=== PATIENT | female | born 1995 | race Caucasian/White ===

== ENCOUNTER 2017-12-10 13:30 | Emergency (ER) | payer BC ==
--- NOTE | 2017-12-10 14:29 | EDM.PDOC ---
ED HPI GENERAL MEDICAL PROBLEM - General Chief Complaint: Abdominal Pain Stated Complaint: CHEST PAINS Time Seen by Provider: 12/10/17 13:46 Source of Information: Reports: Patient History Limitations: Reports: No Limitations - History of Present Illness INITIAL COMMENTS - FREE TEXT/NARRATIVE: Veronika presents today with complaints of continued and worsening abdominal pain for the past 7 to 14 days. She reports pain throughout the day, worse after eating to the epigastric area with radiation like a band along her bra line around her chest. She complains of increase flatus, constipation, nausea and turning type pain. Veronika also complains of sore throat and frequent exposure to strep at work. She denies fever, chills, vomiting or other concerns. - Related Data Allergies Allergy/AdvReac Type Severity Reaction Status Date / Time amoxicillin Allergy Other Verified 12/10/17 14:01 cat dander Allergy Other Verified 12/10/17 14:01 cephalexin [From Keflex] Allergy Other Verified 12/10/17 14:01 Home Meds: Home Meds Citalopram Hydrobromide [Celexa] 1 tab PO ASDIRECTED 12/10/17 [History] Past Medical History Genitourinary History: Reports: Other (See Below) Other Genitourinary History: UTI last one was about 6 months ago : 0 Para: 0 LMP (Approximate): Other (See Below) (Patient has paragard in place since 2015.) Psychiatric History: Reports: Anxiety, Depression, OCD - Infectious Disease History Infectious Disease History: Reports: Herpes - Past Surgical History Female Surgical History: Reports: Other (See Below) Other Female Surgeries/Procedures: genital herpes Social & Family History - Family History Family Medical History: Noncontributory - Tobacco Use Smoking Status *Q: Former Smoker Used Tobacco, but Quit: Yes Month/Year Tobacco Last Used: 2015 - Caffeine Use Caffeine Use: Reports: Coffee (1 cup coffee per day), Tea - Alcohol Use Days Per Week of Alcohol Use: 2 Number of Drinks Per Day: 4 Total Drinks Per Week: 8 - Recreational Drug Use Recreational Drug Use: No ED ROS GENERAL - Review of Systems Review Of Systems: See Below Constitutional: Denies: Fever, Chills HEENT: Reports: Throat Pain. Denies: Ear Pain, Throat Swelling Respiratory: Reports: No Symptoms Cardiovascular: Reports: No Symptoms Endocrine: Reports: No Symptoms GI/Abdominal: Reports: Abdominal Pain, Constipation, Distension, Flatus, Nausea , Other (epigastric pain). Denies: Black Stool, Bloody Stool, Diarrhea, Decreased Appetite, Difficulty Swallowing, Stool Incontinence, Vomiting : Reports: No Symptoms Musculoskeletal: Reports: No Symptoms Skin: Reports: No Symptoms Neurological: Reports: No Symptoms Psychiatric: Reports: No Symptoms Hematologic/Lymphatic: Reports: No Symptoms Immunologic: Reports: No Symptoms ED EXAM, GI/ABD - Physical Exam Exam: See Below Text/Narrative:: Veronika is an alert and oriented 22 year old female presenting with complaints of epigastric/abdominal pain with radiation like a band around her chest along the bra line for two weeks. She reports eating a high fat diet this summer with low carbohydrate content. She states the past several weeks she has eaten more carbohydrates. Exam Limited By: No Limitations General Appearance: Alert, WD/WN, No Apparent Distress Eyes: Bilateral: EOMI Ears: Normal External Exam, Normal Canal, Hearing Grossly Normal, Normal TMs Nose: Normal Inspection, Normal Mucosa, No Blood Throat/Mouth: Normal Lips, Normal Teeth, Normal Gums, Normal Oropharynx, Normal Voice, No Airway Compromise, Other (erythema without exudate to tonsils) Head: Atraumatic, Normocephalic Neck: Normal Inspection, Supple, Non-Tender, Full Range of Motion. No: Lymphadenopathy (R), Lymphadenopathy (L) Respiratory/Chest: No Respiratory Distress, Lungs Clear, Normal Breath Sounds, No Accessory Muscle Use, Chest Non-Tender Cardiovascular: Normal Peripheral Pulses, Regular Rate, Rhythm, No Edema, No Gallop, No Murmur, No Rub GI/Abdominal Exam: Normal Bowel Sounds, Soft, Non-Tender, No Organomegaly, No Mass, Other (slight distention). No: Guarding, Rigid, Rebound, Hernia Extremities: Normal Inspection, Normal Range of Motion, No Pedal Edema, Normal Capillary Refill, Other (Tenderness to left flank with palpation/percussion) Neurological: Alert, Oriented, CN II-XII Intact, Normal Cognition, Normal Gait, No Motor/Sensory Deficits Psychiatric: Normal Affect, Normal Mood Skin Exam: Warm, Dry, Intact, Normal Color, No Rash Lymphatic: No Adenopathy Course - Vital Signs Last Recorded V/S: Last Vital Signs Temp 36.1 C 12/10/17 15:32 Pulse 78 12/10/17 16:28 Resp 14 12/10/17 15:32 BP 125/78 12/10/17 16:28 Pulse Ox 99 12/10/17 13:48 - Orders/Labs/Meds Orders: Active Orders 24 hr Category Date Time Status Gallbladder [Abdomen Ltd] [US] Stat Exams 12/10/17 15:21 Taken CULTURE STREP A CONFIRMATION [RM] Stat Lab 12/10/17 14:28 Results STREP SCRN A RAPID W CULT CONF [RM] Stat Lab 12/10/17 14:28 Results Labs: Laboratory Tests 12/10/17 12/10/17 12/10/17 Range/Units 14:50 14:50 14:50 WBC 9.5 (4.5-11.0) K/uL RBC 4.92 (3.30-5.50) M/uL Hgb 15.1 H (12.0-15.0) g/dL Hct 43.6 (36.0-48.0) % MCV 89 (80-98) fL MCH 31 (27-31) pg MCHC 35 (32-36) % Plt Count 254 (150-400) K/uL Neut % (Auto) 69 H (36-66) % Lymph % (Auto) 21 L (24-44) % Bland % (Auto) 6 (2-6) % Eos % (Auto) 4 (2-4) % Baso % (Auto) 0 (0-1) % Sodium 139 L (140-148) mmol/L Potassium 3.9 (3.6-5.2) mmol/L Chloride 102 (100-108) mmol/L Carbon Dioxide 25 (21-32) mmol/L Anion Gap 15.9 H (5.0-14.0) mmol/L BUN 5 L (7-18) mg/dL Creatinine 0.7 (0.6-1.0) mg/dL Est Cr Clr Drug Dosing 95.66 mL/min Estimated GFR (MDRD) > 60 (>60) Glucose 83 (74-106) mg/dL Calcium 9.2 (8.5-10.1) mg/dL Total Bilirubin 0.4 (0.2-1.0) mg/dL AST 23 (15-37) U/L ALT 21 (12-78) U/L Alkaline Phosphatase 76 (46-116) U/L C-Reactive Protein 0.11 (0.0-0.3) mg/dL Total Protein 8.5 H (6.4-8.2) g/dL Albumin 4.7 (3.4-5.0) g/dL Globulin 3.8 H (2.3-3.5) g/dL Albumin/Globulin Ratio 1.2 (1.2-2.2) Amylase 69 (25-115) U/L Lipase 121 (73-393) U/L Urine Color Urine Appearance Urine pH (4.5-8.0) Ur Specific [place] (1.008-1.030) Urine Protein (NEGATIVE) mg/dL Urine Glucose (UA) (NEGATIVE) mg/dL Urine Ketones (NEGATIVE) mg/dL Urine Occult Blood (NEGATIVE) Urine Nitrite (NEGATIVE) Urine Bilirubin (NEGATIVE) Urine Urobilinogen (NORMAL) mg/dL Ur Leukocyte Esterase (NEGATIVE) Urine RBC (0-5) Urine WBC (0-5) Ur Epithelial Cells Amorphous Sediment Urine Bacteria Urine Mucus Urine HCG, Qual 12/10/17 12/10/17 Range/Units 15:36 15:57 WBC (4.5-11.0) K/uL RBC (3.30-5.50) M/uL Hgb (12.0-15.0) g/dL Hct (36.0-48.0) % MCV (80-98) fL MCH (27-31) pg MCHC (32-36) % Plt Count (150-400) K/uL Neut % (Auto) (36-66) % Lymph % (Auto) (24-44) % Bland % (Auto) (2-6) % Eos % (Auto) (2-4) % Baso % (Auto) (0-1) % Sodium (140-148) mmol/L Potassium (3.6-5.2) mmol/L Chloride (100-108) mmol/L Carbon Dioxide (21-32) mmol/L Anion Gap (5.0-14.0) mmol/L BUN (7-18) mg/dL Creatinine (0.6-1.0) mg/dL Est Cr Clr Drug Dosing mL/min Estimated GFR (MDRD) (>60) Glucose (74-106) mg/dL Calcium (8.5-10.1) mg/dL Total Bilirubin (0.2-1.0) mg/dL AST (15-37) U/L ALT (12-78) U/L Alkaline Phosphatase (46-116) U/L C-Reactive Protein (0.0-0.3) mg/dL Total Protein (6.4-8.2) g/dL Albumin (3.4-5.0) g/dL Globulin (2.3-3.5) g/dL Albumin/Globulin Ratio (1.2-2.2) Amylase (25-115) U/L Lipase (73-393) U/L Urine Color Yellow Urine Appearance Cloudy Urine pH 8.0 (4.5-8.0) Ur Specific [place] 1.010 (1.008-1.030) Urine Protein Negative (NEGATIVE) mg/dL Urine Glucose (UA) Normal (NEGATIVE) mg/dL Urine Ketones Negative (NEGATIVE) mg/dL Urine Occult Blood Negative (NEGATIVE) Urine Nitrite Negative (NEGATIVE) Urine Bilirubin Negative (NEGATIVE) Urine Urobilinogen Normal (NORMAL) mg/dL Ur Leukocyte Esterase Negative (NEGATIVE) Urine RBC 0-5 (0-5) Urine WBC 0-5 (0-5) Ur Epithelial Cells Few Amorphous Sediment Not seen Urine Bacteria Moderate Urine Mucus Not seen Urine HCG, Qual Negative Strep screen negative. Patient lab work reviewed. Bedside US-Fast exam per Dr. Jacome, noted artifact over gallbladder. We will complete Gallbladder US. Ultrasound did not show any acute gallbladder disease. Radiologist report pending. Patient education provided on hydration, diet and follow up. She verbalizes understanding and is in agreement with plan. Departure - Departure Time of Disposition: 16:21 Disposition: Home, Self-Care 01 Condition: Good Clinical Impression: Abdominal pain, Gastritis - Discharge Information *PRESCRIPTION DRUG MONITORING PROGRAM REVIEWED*: No *COPY OF PRESCRIPTION DRUG MONITORING REPORT IN PATIENT KRYSTYNA: No Instructions: Gastritis, Adult, [id number], Abdominal Pain, Adult, Easy-to- Read Referrals: Lynette Rios, [facility] [Primary Care Provider] - Forms: ED Department Discharge, ED Return to Work/School Form Additional Instructions: You have been evaluated and treated for epigastric/abdominal pain and sore throat. Strep screen negative. Gallbladder ultrasound completed, no gallbladder issues. Radiologist report pending. It would be best for you to keep yourself hydrated. You can take over the counter omeprazole 20mg by mouth twice per day to help with gastritis/pain. Abstain from use of alcohol while you have the pain. You can take docusate sodium 100mg by mouth twice per day for constipation. Use of miralax as once or twice a day can also help with constipation. These are both over the counter. Try to stay away from spicy foods. Work on easy to digest fruits and vegetables. Try to avoid high fat/rich fat foods and excessive amounts of carbohydrate rich foods. Follow up with your primary provider in 7 to 14 days for a recheck and any other issues. Return to the emergency room for worsening, issues or concerns. - My Orders Last 24 Hours: My Active Orders 12/10/17 14:28 CULTURE STREP A CONFIRMATION [RM] Stat STREP SCRN A RAPID W CULT CONF [RM] Stat 12/10/17 15:21 Gallbladder [Abdomen Ltd] [US] Stat - Assessment/Plan Last 24 Hours: My Active Orders 12/10/17 14:28 CULTURE STREP A CONFIRMATION [RM] Stat STREP SCRN A RAPID W CULT CONF [RM] Stat 12/10/17 15:21 Gallbladder [Abdomen Ltd] [US] Stat Assessment:: Gastritis Abdominal pain Plan: Patient evaluated and treated for epigastric/abdominal pain and sore throat. Strep screen negative. Gallbladder ultrasound completed, no gallbladder issues. Radiologist report pending. Keep yourself hydrated. Take omeprazole 20mg by mouth twice per day to help with gastritis/pain. Abstain from use of alcohol while you have the pain. Take docusate sodium 100mg by mouth twice per day for constipation. Use of miralax as once or twice a day can also help with constipation. Try to stay away from spicy foods. Work on easy to digest fruits and vegetables. Try to avoid high fat/rich fat foods and excessive amounts of carbohydrate rich foods. Follow up with primary provider in 7 to 14 days for a recheck and any other issues. Return to the emergency room for worsening, issues or concerns.
== END 2017-12-10 16:30 | disposition home or self-care (01) ==
LOC: JP.ED 13:30
DX: K29.70 Gastritis, unspecified, without bleeding (principal); Z88.1 Allergy status to other antibiotic agents; Z91.09 Other allergy status, other than to drugs and biological substances; Z87.891 Personal history of nicotine dependence
CPT/HCPCS: 36415; 76705; 80053; 81001; 81025; 82150; 83690; 85025; 86140; 87081; 87430; 99284-25